=== PATIENT | male | born 1990 | race Caucasian/White ===

== ENCOUNTER 2017-07-03 18:34 | Emergency (ER) | payer SELFPAY ==
[~2017-07-03] VITALS: Ht 182.9 cm; Wt 90.9 kg
[~2017-07-03 18:34] MED LIST: NOCURR
[2017-07-03 18:53] VITALS: BP 149/91
== END 2017-07-03 22:00 | disposition left against medical advice (07) ==
LOC: EMS 18:35
DX: Z53.21 Procedure and treatment not carried out due to patient leaving prior to being seen by health care provider (principal)